=== PATIENT | male | born 1965 | race Caucasian/White ===

== ENCOUNTER 2018-01-27 11:45 | Emergency (ER) | payer SELFPAY ==
[2018-01-27] MEDS ORDERED: MORPHINE 4 MG/ML SYR ONE ×3 (12:09→17:22)
[2018-01-27] MEDS ORDERED: ONDANSETRON 4 MG/2 ML VIAL ONE (12:09)
--- NOTE | 2018-01-27 13:07 | RAD REPORT ---
EXAM DESCRIPTION: RAD - Knee Right 3 View - 01/27/2018 12:58 pm CLINICAL HISTORY: Laceration, r/o fb COMPARISON: No comparisons FINDINGS: Soft tissue laceration is seen superior to the right patella. No radiopaque foreign body s een. Mild medial compartment space narrowing is seen. No fracture, dislocation or aggressive marrow p attern. No intra-articular joint effusion.
[2018-01-27] MEDS ORDERED: LORazepam 2 MG/ML VIAL ONE (13:56)
[2018-01-27] MEDS ORDERED: CLINDAMYCIN 900MG/D5W 900 MG/50 ML IVPB IV ONE (18:02)
--- NOTE | 2018-01-27 18:10 | EDPHYS ---
Physician Documentation [facility] Name: Jerson Matthew Age: 52 yrs Sex: Male : 1965 Arrival Date: 01/27/2018 Time: 11:49 Bed 23 Private MD: ED Physician Neal East HPI: 01/27 11:56 This 52 yrs old Male presents to ER via EMS with complaints of Laceration To [facility] Leg. 11:56 The patient has a laceration related to: doing carpentry, from a power saw. Onset: The [facility] symptoms/episode began/occurred acutely, just prior to arrival. This is a 53 year old male with a history of chronic back pain that presents to the ED with a laceration to his right thigh which occurred after the patient cut himself with a skill saw. Patient states the saw kicked back cutting his leg. Patient is UTD on tetanus immunization. Patient denies other injury. . Historical: - Allergies: 11:53 No Known Allergies; ss - Home Meds: 11:53 trazodone Oral [Active]; Seroquel Oral [Active]; Hydrocodone-Acetaminophen Oral ss [Active]; Xanax Oral [Active]; - PMHx: 11:53 Bipolar disorder; chronic back pain; Anxiety; ss - PSHx: 11:53 nasal repair; rotator cuff repair; back; finger; ss - Immunization history:: Last tetanus immunization: up to date. - Social history:: Smoking status: Patient uses tobacco products, smokes one-half pack cigarettes per day. - Ebola Screening: : Patient denies exposure to infectious person Patient denies travel to an Ebola-affected area in the 21 days before illness onset. ROS: 11:56 Constitutional: Negative for fever, chills, and weight loss, Eyes: Negative for injury, jmm pain, redness, and discharge, Cardiovascular: Negative for chest pain, palpitations, and edema, Respiratory: Negative for shortness of breath, cough, wheezing, and pleuritic chest pain. 11:56 MS/extremity: Positive for injury or acute deformity, laceration. 11:56 Skin: Positive for laceration(s). 11:56 All other systems are negative. Exam: 11:56 Constitutional: This is a well developed, well nourished patient who is awake, alert, jmm and in no acute distress. Head/Face: atraumatic. Eyes: EOMI, no conjunctival erythema appreciated ENT: Moist Mucus Membranes Neck: Trachea midline, Supple Chest/axilla: Normal chest wall appearance and motion. Cardiovascular: Regular rate and rhythm. No edema appreciated Respiratory: Normal respirations, no respiratory distress appreciated 11:56 Musculoskeletal/extremity: a 7 cm laceration is noted superior to the right knee, fascial involvement is appreciated. The patient has full strength on extension, compartments are soft, mild bleeding is appreciated, full dorsalis pedis pulse, NVI. 11:56 Skin: 7 cm laceration is appreciated to the distal thigh. 11:56 Neuro: Orientation: is normal, Mentation: is normal, Memory: is normal. 11:56 Psych: Behavior/mood is pleasant, cooperative. Vital Signs: 11:45 BP 176 / 97; Pulse 62; Resp 18; Pulse Ox 96% on R/A; jp3 11:53 BP 174 / 97; Pulse 70; Resp 18; Temp 98.1(TE); Pulse Ox 97% on R/A; Weight 65.32 kg; ss Height 5 ft. 4 in. (162.56 cm); Pain 8/10; 15:00 BP 144 / 88 LA Sitting (auto/reg); Pulse 63; Resp 18; Pulse Ox 96% on R/A; Pain 5/10; jp3 16:42 BP 144 / 74; Pulse 62; Resp 16; Pulse Ox 98% on R/A; la1 11:53 Body Mass Index 24.72 (65.32 kg, 162.56 cm) ss Laceration: 18:06 Wound Repair of 7cm ( 2.8in ) subcutaneous laceration to right quadriceps. Distal jmm neuro/vascular/tendon intact. Anesthesia: Local anesthetic administered with 10 mls of 0.5% marcaine. Wound prep: Extensive cleansing with betadine by certified veterinary technician by md, Copious irrigation. Fascia closed with 4 4-0 Vicryl using simple sutures and sterile technique. Skin closed with 1-0 Prolene using simple sutures and sterile technique. Subcutaneous tissue closed using simple sutures and sterile technique. Skin closed with 12 4-0 Prolene using simple sutures and sterile technique. Dressed with Neosporin, 4x4's, non-adherent dressing. Patient tolerated well. MDM: 11:56 Patient medically screened. jmm 18:05 Data reviewed: vital signs, nurses notes. Counseling: I had a detailed discussion with [facility] the patient and/or guardian regarding: the historical points, exam findings, and any diagnostic results supporting the discharge/admit diagnosis. 18:05 Data reviewed: radiologic studies. [facility] 18:05 ED course: patient advised of the risk for infection due mechanism of injury. patient [facility] prescribed oral antibiotics. patient has FROM of the right knee joint, xray shows no bony involvement. . 01/27 12:06 Order name: Knee Right 3 View XRAY; Complete Time: 13:12 [facility] 01/27 12:06 Order name: Saline Lock; Complete Time: 12:07 [facility] Administered Medications: 12:08 Drug: Zofran 4 mg Route: IVP; Site: right forearm; ss 16:12 Follow up: Response: No adverse reaction la1 12:12 Drug: morphine 4 mg Route: IVP; Site: right forearm; ss 16:12 Follow up: Response: No adverse reaction; Pain is decreased la1 13:27 Drug: Marcaine (0.5 %) 20 ml Volume: 10 ml; Route: Infiltration; la1 13:50 Drug: Ativan 1 mg Route: IVP; Site: right antecubital; la1 16:12 Follow up: Response: No adverse reaction; Anxiety decreased la1 16:12 Drug: morphine 4 mg Route: IVP; Site: right antecubital; la1 16:13 Follow up: Response: No adverse reaction; Pain is decreased la1 17:16 Drug: morphine 4 mg Route: IVP; Site: right antecubital; la1 17:22 Follow up: Response: No adverse reaction; Pain is decreased la1 17:45 Drug: Clindamycin 900 mg Route: IVPB; Infused Over: 30 mins; Site: right antecubital; la1 18:17 Follow up: IV Status: Completed infusion la1 Disposition: 01/28 07:39 Co-signature as Attending Physician, Neal East MD I agree with the assessment and kdr plan of care. Disposition: 01/27/18 18:09 Discharged to Home. Impression: Right Thigh Laceration. - Condition is Stable. - Discharge Instructions: Laceration Care, Adult. - Prescriptions for Clindamycin HCl 300 mg Oral Capsule - take 1 capsule by ORAL route every 6 hours for 10 days; 40 capsule. - Medication Reconciliation Form, Thank You Letter, Antibiotic Education, Prescription Opioid Use form. - Follow up: Private Physician; When: 7 - 10 days; Reason: Recheck today's complaints, Continuance of care, Staple/Suture removal, Re-evaluation by your physician. Signatures: Dispatcher [employer] EDMS Neal East MD MD kdr Mickail, Joel, PA PA jmm Smirch, Shelby, RN RN Winston Bhatt RN RN la1 Corrections: (The following items were deleted from the chart) 01/27 18:31 18:09 01/27/2018 18:09 Discharged to Home. Impression: Right Thigh Laceration. la1 Condition is Stable. Forms are Medication Reconciliation Form, Thank You Letter, Antibiotic Education, Prescription Opioid Use. Follow up: Private Physician; When: 7 - 10 days; Reason: Recheck today's complaints, Continuance of care, Staple/Suture removal, Re-evaluation by your physician. kendrick
--- NOTE | 2018-01-27 18:10 | ER ---
Nurse's Notes [facility] Name: Jerson Matthew Age: 52 yrs Sex: Male : 1965 Arrival Date: 01/27/2018 Time: 11:49 Bed 23 Private MD: Diagnosis: Right Thigh Laceration Presentation: 01/27 11:49 Presenting complaint: EMS states: Laceration above R knee that occurred approx 45 ss minutes ago with a skill saw. Bleeding controlled. Transition of care: patient was not received from another setting of care. Complicating Factors: There are no complicating factors for this patient. Onset of symptoms was January 27, 2018. Risk Assessment: Do you want to hurt yourself or someone else? Patient reports no desire to harm self or others. Initial Sepsis Screen: Does the patient meet any 2 criteria? No. Patient's initial sepsis screen is negative. Does the patient have a suspected source of infection? No. Patient's initial sepsis screen is negative. Care prior to arrival: 2 failed IV attempts to L AC. Fentanyl 100 mcg given IV just prior to arrival by EMS before IV infiltrated. 11:49 Method Of Arrival: EMS: [facility] ss 11:49 Acuity: JACKELINE 3 ss Historical: - Allergies: 11:53 No Known Allergies; ss - Home Meds: 11:53 trazodone Oral [Active]; Seroquel Oral [Active]; Hydrocodone-Acetaminophen Oral ss [Active]; Xanax Oral [Active]; - PMHx: 11:53 Bipolar disorder; chronic back pain; Anxiety; ss - PSHx: 11:53 nasal repair; rotator cuff repair; back; finger; ss - Immunization history:: Last tetanus immunization: up to date. - Social history:: Smoking status: Patient uses tobacco products, smokes one-half pack cigarettes per day. - Ebola Screening: : Patient denies exposure to infectious person Patient denies travel to an Ebola-affected area in the 21 days before illness onset. Screenin:13 Abuse screen: Denies threats or abuse. Denies injuries from another. Nutritional ss screening: No deficits noted. Tuberculosis screening: Never had TB. Fall Risk None identified. Assessment: 12:13 General: Appears in no apparent distress. comfortable, Behavior is calm, cooperative. ss Pain: Complains of pain in right quadriceps Pain currently is 8 out of 10 on a pain scale. Quality of pain is described as tender, Is continuous. Neuro: Level of Consciousness is awake, alert, obeys commands. Cardiovascular: Capillary refill < 3 seconds is brisk in bilateral Patient's skin is warm and dry. Pulses are palpable in right radial artery, right dorsalis pedis artery, left radial artery and left dorsalis pedis artery. Respiratory: Airway is patent Respiratory effort is even, unlabored, Respiratory pattern is regular, symmetrical. EENT: Nares are clear Oral mucosa is moist. Throat is clear. Derm: Skin is pink, warm \T\ dry. normal. Musculoskeletal: Circulation, motion, and sensation intact. Range of motion: intact in all extremities. Injury Description: bandage remains in place, no active bleeding noted at this time. ordered by TERRI Easton to leave dressing in place until XRAY results are back. 12:44 Reassessment: Patient appears in no apparent distress at this time. No changes from la1 previously documented assessment. Patient and/or family updated on plan of care and expected duration. Pain level reassessed. 14:52 Reassessment: No changes from previously documented assessment. Patient and/or family la1 updated on plan of care and expected duration. Pain level reassessed. Patient is alert, oriented x 3, equal unlabored respirations, skin warm/dry/pink. Injury Description: Laceration sustained to left quadriceps is 7.6 to 20 cm long, not bleeding, was sustained 1-2 hours ago. is bleeding a small amount. 16:13 Reassessment: Patient appears in no apparent distress at this time. No changes from la1 previously documented assessment. Patient and/or family updated on plan of care and expected duration. Pain level reassessed. Patient is alert, oriented x 3, equal unlabored respirations, skin warm/dry/pink. Vital Signs: 11:45 BP 176 / 97; Pulse 62; Resp 18; Pulse Ox 96% on R/A; jp3 11:53 BP 174 / 97; Pulse 70; Resp 18; Temp 98.1(TE); Pulse Ox 97% on R/A; Weight 65.32 kg; ss Height 5 ft. 4 in. (162.56 cm); Pain 8/10; 15:00 BP 144 / 88 LA Sitting (auto/reg); Pulse 63; Resp 18; Pulse Ox 96% on R/A; Pain 5/10; jp3 16:42 BP 144 / 74; Pulse 62; Resp 16; Pulse Ox 98% on R/A; la1 11:53 Body Mass Index 24.72 (65.32 kg, 162.56 cm) ED Course: 11:49 Patient arrived in ED. ss 11:50 Patient has correct armband on for positive identification. Bed in low position. Call jp3 light in reach. Side rails up X 1. Side rails up X2. Pillow given. Right leg elevated with clean towels. Pulse ox on. NIBP on. 11:51 Triage completed. ss 11:51 Patient maintains SpO2 saturation greater than 95% on room air. jp3 11:53 Devon Alvarez PA is PHCP. [facility] 11:53 Neal East MD is Attending Physician. m 11:53 Arm band placed on right wrist. ss 12:07 Inserted saline lock: 20 gauge in right forearm, using aseptic technique. Blood jp3 collected. 12:13 Rosina Packer, MYCHAL is Primary Nurse. ss 12:45 X-ray completed. Portable x-ray completed in exam room. Patient tolerated procedure sg4 well. 13:00 Knee Right 3 View XRAY In Process Unspecified. EDMS 14:45 Irrigation of laceration on lateral aspect of right thigh, medial aspect of right thigh jp3 and right quadriceps irrigated with normal saline Betadine solution Patient tolerated well. 14:45 Wound care: to laceration located on lateral aspect of right thigh, medial aspect of jp3 right thigh and right quadriceps was cleaned with Hibiclens, soaked in Betadine solution, irrigated with normal saline, Patient tolerated well. 18:31 No provider procedures requiring assistance completed. IV discontinued, intact, la1 bleeding controlled, No redness/swelling at site. Pressure dressing applied. Administered Medications: 12:08 Drug: Zofran 4 mg Route: IVP; Site: right forearm; ss 16:12 Follow up: Response: No adverse reaction la1 12:12 Drug: morphine 4 mg Route: IVP; Site: right forearm; ss 16:12 Follow up: Response: No adverse reaction; Pain is decreased la1 13:27 Drug: Marcaine (0.5 %) 20 ml Volume: 10 ml; Route: Infiltration; la1 13:50 Drug: Ativan 1 mg Route: IVP; Site: right antecubital; la1 16:12 Follow up: Response: No adverse reaction; Anxiety decreased la1 16:12 Drug: morphine 4 mg Route: IVP; Site: right antecubital; la1 16:13 Follow up: Response: No adverse reaction; Pain is decreased la1 17:16 Drug: morphine 4 mg Route: IVP; Site: right antecubital; la1 17:22 Follow up: Response: No adverse reaction; Pain is decreased la1 17:45 Drug: Clindamycin 900 mg Route: IVPB; Infused Over: 30 mins; Site: right antecubital; la1 18:17 Follow up: IV Status: Completed infusion la1 Outcome: 18:09 Discharge ordered by . kendrick 18:17 Discharged to home via wheelchair. aj1 18:17 Condition: good 18:17 Discharge instructions given to patient, Instructed on discharge instructions, follow up and referral plans. medication usage, wound care, Demonstrated understanding of instructions, follow-up care, medications, wound care. 18:31 Patient left the ED. la1 Signatures: Dispatcher [employer] EDSherry Quick RN RN aj1 Devon Alvarez PA PA jmm Smirch, Shelby, RN RN ss Attema, Lee, RN RN la1 Bam Rodriguez Susana sg4
== END 2018-01-27 18:31 | disposition home or self-care (01) ==
LOC: ER 11:45
PROC: 0JQL0ZZ Repair Right Upper Leg Subcutaneous Tissue and Fascia, Open Approach (ICD-10-PCS; principal; 2018-01-27)
DX: S71.111A Laceration without foreign body, right thigh, initial encounter (principal); W29.8XXA Contact with other powered hand tools and household machinery, initial encounter; Y93.89 Activity, other specified; Y92.9 Unspecified place or not applicable; F31.9 Bipolar disorder, unspecified; F41.9 Anxiety disorder, unspecified
CPT/HCPCS: 99285; J2405

== ENCOUNTER 2018-09-13 21:07 | Emergency (ER) | payer SELFPAY ==
--- OUTSIDE RECORDS SUMMARY | 2018-09-13 21:08 | XMS REPORT ---
:1965 Author Organization [facility] Address [address] [place] [address] Care Team Providers Name Role Phone Unavailable Unavailable Unavailable Problems This patient has no known problems. Allergies, Adverse Reactions, Alerts This patient has no known allergies or adverse reactions. Medications This patient has no known medications.
[2018-09-13] MEDS ORDERED: NA CHLORIDE 0.9% 100 ML IV ONE (22:19)
[2018-09-13] MEDS ORDERED: LEVETIRACETAM 500 MG/5 ML VIAL IV ONE (22:19)
[2018-09-13] MEDS ORDERED: HYDROCODONE/APAP 5/325 MG TAB ONE (22:24)
[2018-09-13 22:41] LABS: Absolute Lymphocytes (CBC) 2.4 K/uL (0.7-4.9); Basophils % 1.1 % (0-1.3); Hematocrit 41.9 % (39.6-49.0); Lymphocytes % 37.9 % (15.3-44.8); RBC Red Blood Cell Count 4.54 M/uL (4.33-5.43)
[2018-09-13 22:53] LABS: ALT/SGPT 24 U/L (12-78); AST/SGOT 18 U/L (15-37); Albumin 3.6 g/dL (3.4-5.0); Alkaline Phosphatase 71 U/L (45-117); BUN Blood Urea Nitrogen 11 mg/dL (7-18); Bicarbonate 27 mmol/L (21-32); Bilirubin Total 0.4 mg/dL (0.2-1.0); Glucose Level 96 mg/dL (74-106); Potassium 3.8 mmol/L (3.5-5.1); Sodium Level 139 mmol/L (136-145)
[2018-09-13 22:59] LABS: Urine Appearance CLOUDY; Urine Bilirubin NEGATIVE (NEG); Urine Blood NEGATIVE (NEG); Urine Color YELLOW; Urine Glucose NEGATIVE (NEG); Urine Microscopic Reflex ORDER UMIC; Urine Protein NEGATIVE (NEG); Urine pH 7.5 (5.0-7.0)
[2018-09-13 23:02] LABS: Urine Amorphous Sediment 2+ /HPF (NONE SEEN); Urine Bacteria <20 /HPF (NONE SEEN); Urine Culture Reflex Order REFLEXED; Urine RBC <5 /HPF (NONE SEEN)
[2018-09-13 23:04] LABS: Urine Volume 1 ML
--- NOTE | 2018-09-13 23:55 | EDPHYS ---
Physician Documentation [facility] Name: Jerson Matthew Age: 53 yrs Sex: Male : 1965 Arrival Date: 09/13/2018 Time: 21:13 Bed 27 Private MD: ED Physician Олег Coyle HPI: 09/13 23:46 This 53 yrs old Male presents to ER via EMS with complaints of Seizure, Fall ps1 Injury. 23:46 patient has a history of seizure. Not on AED. 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 Fell. Has right knee pain. No obvious fx. Pain rated as moderate. . Historical: - Allergies: 21:34 No Known Allergies; mg2 - Home Meds: 21:34 Seroquel Oral [Active]; Trazodone Oral [Active]; Xanax Oral [Active]; mg2 - PMHx: 21:34 Anxiety; Bipolar disorder; chronic back pain; Seizures; mg2 - PSHx: 21:34 back surgery; mg2 - Immunization history:: Flu vaccine is up to date. - Social history:: Patient/guardian denies using Smoking status: Patient uses tobacco products, smokes one pack cigarettes per day. Patient uses alcohol, occasionally. street drugs, marijuana. - Ebola Screening: : No symptoms or risks identified at this time. ROS: 23:46 Constitutional: Negative for fever, chills, and weight loss, Eyes: Negative for injury, ps1 pain, redness, and discharge, ENT: Negative for injury, pain, and discharge, Cardiovascular: Negative for chest pain, palpitations, and edema, Respiratory: Negative for shortness of breath, cough, wheezing, and pleuritic chest pain, Abdomen/GI: Negative for abdominal pain, nausea, vomiting, diarrhea, and constipation, Skin: Negative for injury, rash, and discoloration, Psych: Negative for depression, anxiety, suicide ideation, homicidal ideation, and hallucinations. 23:46 MS/extremity: Positive for pain, tenderness, of the right knee. 23:46 Neuro: Positive for seizure activity. Exam: 23:46 Constitutional: This is a well developed, well nourished patient who is awake, alert, ps1 and in no acute distress. Head/Face: Normocephalic, atraumatic. Eyes: Pupils equal round and reactive to light, extra-ocular motions intact. Lids and lashes normal. Conjunctiva and sclera are non-icteric and not injected. Cardiovascular: Regular rate and rhythm. No gallops, murmurs, or rubs. Normal PMI, no JVD. No pulse deficits. Respiratory: Lungs have equal breath sounds bilaterally, clear to auscultation and percussion. No rales, rhonchi or wheezes noted. No increased work of breathing, no retractions or nasal flaring. Abdomen/GI: Soft, non-tender, with normal bowel sounds. No distension or tympany. No guarding or rebound. No evidence of tenderness throughout. Skin: Warm, dry with normal turgor. Normal color with no rashes, no lesions, and no evidence of cellulitis. Neuro: Awake and alert, GCS 15, oriented to person, place, time, and situation. Cranial nerves II-XII grossly intact. Sensory grossly intact. 23:46 Musculoskeletal/extremity: Extremities: grossly normal except: noted in the right knee: tenderness, There is no evidence of deformity, laxity. Vital Signs: 21:17 BP 115 / 81; Pulse 75; Resp 18; Temp 98.2; Weight 65.32 kg; Height 5 ft. 4 in. (162.56 mg2 cm); Pain 10/10; 23:15 BP 103 / 69; Pulse 70; Resp 18; Pulse Ox 96% on R/A; mg2 09/14 00:00 BP 95 / 60; Pulse 75; Resp 17; Temp 98.7; Pulse Ox 99% ; rr5 09/13 21:17 Body Mass Index 24.72 (65.32 kg, 162.56 cm) mg2 MDM: 09/13 22:12 Patient medically screened. ps1 23:46 Data reviewed: vital signs, nurses notes. Counseling: I had a detailed discussion with ps1 the patient and/or guardian regarding: the historical points, exam findings, and any diagnostic results supporting the discharge/admit diagnosis, lab results, radiology results, the need for outpatient follow up, for definitive care, a neurologist, to return to the emergency department if symptoms worsen or persist or if there are any questions or concerns that arise at home, recurrent seizure. Home with Keppra 500 bid. Loaded in ED. Xray negative for obvious FX. If pain persists. Follow up with Ortho for further diagnostic testing. . 09/13 22:11 Order name: CBC with Diff; Complete Time: 23:46 [facility] 09/13 22:11 Order name: CMP; Complete Time: 22:55 [facility] 09/13 22:11 Order name: UA; Complete Time: 23:46 [facility] 09/13 22:11 Order name: Lactate; Complete Time: 22:54 [facility] 09/13 23:27 Order name: Urine Microscopic Only; Complete Time: 23:46 [facility] 09/13 23:29 Order name: Urine Culture [facility] 09/13 22:11 Order name: Knee Right 3 View XRAY [facility] 09/13 22:29 Order name: EKG - Nurse/Tech; Complete Time: 22:30 mg2 Administered Medications: 22:29 Drug: Lavelle 5 mg-325 mg 1 tabs Route: PO; mg2 23:30 Follow up: Response: No adverse reaction; RASS: Alert and Calm (0) rr5 22:29 Drug: Keppra 1000 mg Route: IV; Rate: calculated rate; Site: right antecubital; mg2 23:00 Follow up: Response: No adverse reaction; IV Status: Completed infusion; IV Intake: [id number] Disposition: 09/13/18 23:54 Discharged to Home. Impression: Other epilepsy and recurrent seizures. - Condition is Stable. - Discharge Instructions: Seizure, Adult. - Prescriptions for Keppra 500 mg Oral Tablet - take 1 tablet by ORAL route every 12 hours; 20 tablet. - Medication Reconciliation Form, Thank You Letter, Antibiotic Education, Prescription Opioid Use form. - Follow up: Emergency Department; When: As needed; Reason: Worsening of condition. Follow up: Private Physician; When: As needed; Reason: Further diagnostic work-up, Recheck today's complaints, Continuance of care. - Problem is an ongoing problem. - Symptoms are unchanged. Signatures: Dispatcher [employer] [facility] Олег Coyle MD MD ps1 Erickson Rider RN RN mg2 Alonzo Weinberg RN RN rr5 Corrections: (The following items were deleted from the chart) 09/14 00:14 09/13 23:54 09/13/2018 23:54 Discharged to Home. Impression: Other epilepsy and rr5 recurrent seizures. Condition is Stable. Forms are Medication Reconciliation Form, Thank You Letter, Antibiotic Education, Prescription Opioid Use. Follow up: Emergency Department; When: As needed; Reason: Worsening of condition. Follow up: Private Physician; When: As needed; Reason: Further diagnostic work-up, Recheck today's complaints, Continuance of care. Problem is an ongoing problem. Symptoms are unchanged. ps1
--- NOTE | 2018-09-13 23:55 | ER ---
Nurse's Notes [facility] Name: Jerson Matthew Age: 53 yrs Sex: Male : 1965 Arrival Date: 09/13/2018 Time: 21:13 Bed 27 Private MD: Diagnosis: Other epilepsy and recurrent seizures Presentation: 09/13 21:13 Presenting complaint: EMS states: post-ictal patient, seizure for about 30 mins at mg2 home, unknown duration, fell and sustained pain in the forehead and swelling in the right knee with right sided weakness he doesn't have any meds for seizure. Transition of care: patient was not received from another setting of care. Onset of symptoms was September 13, 2018. Risk Assessment: Do you want to hurt yourself or someone else? Patient reports no desire to harm self or others. Initial Sepsis Screen: Does the patient meet any 2 criteria? No. Patient's initial sepsis screen is negative. Does the patient have a suspected source of infection? No. Patient's initial sepsis screen is negative. Care prior to arrival: None. 21:13 Method Of Arrival: EMS [facility] 21:13 Acuity: JACKELINE 3 mg2 Historical: - Allergies: 21:34 No Known Allergies; mg2 - Home Meds: 21:34 Seroquel Oral [Active]; Trazodone Oral [Active]; Xanax Oral [Active]; mg2 - PMHx: 21:34 Anxiety; Bipolar disorder; chronic back pain; Seizures; mg2 - PSHx: 21:34 back surgery; mg2 - Immunization history:: Flu vaccine is up to date. - Social history:: Patient/guardian denies using Smoking status: Patient uses tobacco products, smokes one pack cigarettes per day. Patient uses alcohol, occasionally. street drugs, marijuana. - Ebola Screening: : No symptoms or risks identified at this time. Screenin:09 Abuse screen: Denies threats or abuse. Denies injuries from another. Nutritional mg2 screening: No deficits noted. Tuberculosis screening: No symptoms or risk factors identified. Fall Risk Fall in past 12 months (25 points). IV access (20 points). Assessment: 22:08 General: Appears in no apparent distress. comfortable, Behavior is calm, cooperative. mg2 Pain: Complains of pain in forehead and right knee Pain does not radiate. Pain currently is 10 out of 10 on a pain scale. Quality of pain is described as aching. Neuro: Level of Consciousness is awake, alert, obeys commands, Oriented to person, place, time, situation, Seizure activity Patient is post-ictal at this time. Cardiovascular: Capillary refill < 3 seconds Patient's skin is warm and dry. Respiratory: Airway is patent Respiratory effort is even, unlabored, Respiratory pattern is regular, symmetrical. GI: No signs and/or symptoms were reported involving the gastrointestinal system. : No signs and/or symptoms were reported regarding the genitourinary system. EENT: No signs and/or symptoms were reported regarding the EENT system. Derm: Skin is intact, is healthy with good turgor, Skin is pink, warm \T\ dry. normal. Musculoskeletal: Circulation, motion, and sensation intact. Capillary refill < 3 seconds, Swelling present in right knee. 23:00 Reassessment: Patient appears in no apparent distress at this time. Patient and/or rr5 family updated on plan of care and expected duration. Pain level reassessed. Patient is alert, oriented x 3, equal unlabored respirations, skin warm/dry/pink. awaiting for result. 09/14 00:00 Reassessment: Patient appears in no apparent distress at this time. Patient is alert, rr5 oriented x 3, equal unlabored respirations, skin warm/dry/pink. discharge instruction given and explained without complaints made. Patient states feeling better. Patient states symptoms have improved. Vital Signs: 09/13 21:17 BP 115 / 81; Pulse 75; Resp 18; Temp 98.2; Weight 65.32 kg; Height 5 ft. 4 in. (162.56 mg2 cm); Pain 10/10; 23:15 BP 103 / 69; Pulse 70; Resp 18; Pulse Ox 96% on R/A; mg2 09/14 00:00 BP 95 / 60; Pulse 75; Resp 17; Temp 98.7; Pulse Ox 99% ; rr5 09/13 21:17 Body Mass Index 24.72 (65.32 kg, 162.56 cm) mg2 ED Course: 09/13 21:13 Patient arrived in ED. mg2 21:17 Triage completed. mg2 21:26 Erickson Rider RN is Primary Nurse. mg2 21:34 Arm band placed on. mg2 21:41 No provider procedures requiring assistance completed. Inserted saline lock: 20 gauge mg2 in right antecubital area, using aseptic technique. Blood collected. 21:53 Олег Coyle MD is Attending Physician. ps1 22:33 Knee Right 3 View XRAY In Process Unspecified. EDMS 23:16 Patient has correct armband on for positive identification. Placed in gown. Bed in low mg2 position. Call light in reach. Side rails up X2. hall monitor on. Pulse ox on. NIBP on. Door closed. Warm blanket given. 09/14 00:10 IV discontinued, intact, bleeding controlled, No redness/swelling at site. Pressure rr5 dressing applied. Administered Medications: 09/13 22:29 Drug: [place] 5 mg-325 mg 1 tabs Route: PO; mg2 23:30 Follow up: Response: No adverse reaction; RASS: Alert and Calm (0) rr5 22:29 Drug: Keppra 1000 mg Route: IV; Rate: calculated rate; Site: right antecubital; mg2 23:00 Follow up: Response: No adverse reaction; IV Status: Completed infusion; IV Intake: [id number] Intake: 23:00 IV: 50ml; Total: 50ml. rr5 Outcome: 23:54 Discharge ordered by . ps1 09/14 00:10 Discharged to home via wheelchair, with family. rr5 Condition: stable Discharge instructions given to patient, family, Instructed on discharge instructions, follow up and referral plans. medication usage, Demonstrated understanding of instructions, follow-up care, medications, Prescriptions given X 1. 00:14 Patient left the ED. rr5 Signatures: Dispatcher [employer] EDLA Олег Coyle MD MD ps1 Erickson Rider RN RN mg2 Alonzo Weinberg RN RN rr5 Corrections: (The following items were deleted from the chart) 09/13 21:36 21:13 Presenting complaint: EMS states: post-ictal patient, seizure for about 30 mins mg2 at home, unknown duration, fell and sustained pain in the forehead and swelling in the right knee. he doesn't have any meds for seizure. mg2
--- NOTE | 2018-09-14 09:04 | RAD REPORT ---
EXAM DESCRIPTION: RAD - Knee Right 3 View - 09/13/2018 10:33 pm CLINICAL HISTORY: Right knee pain status post injury FINDINGS: No fracture or dislocation is seen.
--- NOTE | 2018-09-14 12:26 | EKG ---
Test Date: 2018-09-13 Test Time: 21:50:41 Roofing Laborer: MG MEASUREMENT RESULTS: Intervals: Rate: 71 MA: 142 QRSD: 100 QT: 422 QTc: 458 [place]: P: 59 MA: 142 QRS: 56 T: 46 INTERPRETIVE STATEMENTS: Normal sinus rhythm Incomplete right bundle branch block Borderline ECG Compared to ECG 08/28/2016 13:01:55 Incomplete right bundle-branch block now present Left ventricular hypertrophy no longer present Electronically Signed On 09-14-18 12:25:08 CDT by Wayne Hernandez
== END 2018-09-14 00:14 | disposition home or self-care (01) ==
LOC: ER 21:07
DX: G40.909 Epilepsy, unspecified, not intractable, without status epilepticus (principal); M25.561 Pain in right knee; F41.9 Anxiety disorder, unspecified; F31.9 Bipolar disorder, unspecified; F17.210 Nicotine dependence, cigarettes, uncomplicated
CPT/HCPCS: 36415; 80053; 81003; 81015; 82962; 83605; 85025; 87086; 87088; 93005; 96365; 99284; J1953